=== PATIENT | male | born 1950 | race Caucasian/White ===

== ENCOUNTER → 2017-07-28 | Day surgery (SDC) | payer MEDICARE, BC ==
[2017-07-13 11:45] LABS: BASOPHILS % 0.3 % (0.0-1.0); EOSINOPHILS # (AUTO) 0.2 (0.0-0.4); EOSINOPHILS % 2.4 % (0.0-6.0); HEMATOCRIT 45.1 % (38.2-49.6); HEMOGLOBIN 15.6 g/dL (14.0-18.0); LYMPHOCYTES # (AUTO) 1.9 (1.0-3.2); LYMPHOCYTES % 30.8 % (18.0-39.1); MEAN CORPUSCULAR HEMOGLOBIN 31.7 pg (28-32); MEAN CORPUSCULAR HGB CONC 34.6 g/dL (31-35); MEAN CORPUSCULAR VOLUME 91.7 fL (81-99); MONOCYTES # (AUTO) 0.8 (0.2-0.8); MONOCYTES % 13.5 % (4.4-11.3); NEUTROPHILS # (AUTO) 3.2 (2.1-6.9); NEUTROPHILS % 52.5 % (38.7-80.0); PLATELET COUNT 150 x10e3/uL (140-360); RED BLOOD COUNT 4.92 x10e6/uL (4.3-5.7); RED CELL DISTRIBUTION WIDTH 14.1 % (11.7-14.4)
[~2017-07-28] MED LIST: ALLOPURINOL300 MG PO; ASPIR 8181 MG PO; ASPIRIN81 MG PO; CRESTOR5 MG PO; DOXAZOSIN MESYLA1 MG PO; LEVOTHYROXINE50 MCG PO; LIDOCAINE HCL 2% LOCAL INJ 5 ML SDV VIAL INJ ONE; MELATONIN3 MG PO; MIDAZOLAM HCL 2 MG/2 ML VIAL ONE; NIACIN500 M2 PO; PROPOFOL IV EMULSION 10 MG/ML 50 ML VIAL ONE; SIMVASTATIN20 MG PO; TAMSULOSIN HCL0.4 MG PO; TRIAMTERENE-HC1 EAC1 PO; TRIAMTERENE-HCTZ1 EA PO; VITAMIN D-3 PO; ZOLPIDEM TARTRA10 MG PO
--- OUTSIDE RECORDS SUMMARY | 2017-07-28 07:22 | XMS REPORT | Clinical Summary ---
Author Author [facility] Address Unknown Phone Unavailable Care Team Providers Care Admission Discharge Rn Name Role Phone PCP Unavailable Allergies Not on File Current Medications Not on file Active Problems Not on file Encounters Date Type Specialty Care Team Description 03/30/2017 Lab Lab Kimberlee Jones DO after 07/27/2016 Social History Tobacco Use Types Packs/Day Years Used Date Never Assessed Sex Assigned at Date Recorded Not on file Last Filed Vital Signs Not on file Plan of Treatment Health Maintenance Due Date Last Done Comments COLONOSCOPY 2000 ZOSTER VACCINE 2010 PNEUMOCOCCAL 09/09/2015 POLYSACCHARIDE VACCINE AGE 65 AND OVER PNEUMOCOCCAL-13 09/09/2015 INFLUENZA VACCINE 12/02/2016 Results * Surgical pathology request (03/30/2017 11:36 AM) Component Value Ref Range Surgical pathology report See link below for PDF Lab Report Result status This is Final Report to [id number] Specimen Performing Laboratory [facility] DEPARTMENT OF PATHOLOGY AND GENOMIC MEDICINE [address] [place] [id number] after 07/27/2016 Insurance Payer Benefit Subscriber ID Type Phone Address Plan / Group MEDICARE MEDICARE xxxxxxxxxx Medicare [place] A [place] B BCBS BCBS xxxxxxxxxxxx PPO CHOICE PPO/[employer] PPO
== END | disposition home or self-care (01) ==
LOC: OR 07:20
PROVIDERS: ATTEND Internal Medicine Gastroenterology
DX: Z12.11 Encounter for screening for malignant neoplasm of colon (principal); D12.0 Benign neoplasm of cecum; D12.2 Benign neoplasm of ascending colon; K57.30 Diverticulosis of large intestine without perforation or abscess without bleeding; K64.8 Other hemorrhoids; I44.0 Atrioventricular block, first degree; I69.898 Other sequelae of other cerebrovascular disease; H53.9 Unspecified visual disturbance; I13.10 Hypertensive heart and chronic kidney disease without heart failure, with stage 1 through stage 4 chronic kidney disease, or unspecified chronic kidney disease; N18.3 Chronic kidney disease, stage 3 (moderate); E78.5 Hyperlipidemia, unspecified; E03.9 Hypothyroidism, unspecified; Z01.810 Encounter for preprocedural cardiovascular examination; Z01.812 Encounter for preprocedural laboratory examination; Z79.82 Long term (current) use of aspirin; Z68.34 Body mass index [BMI] 34.0-34.9, adult; Z85.46 Personal history of malignant neoplasm of prostate; Z80.0 Family history of malignant neoplasm of digestive organs
CPT/HCPCS: 36415; 45384; 45385; 85025; 88305; 93005; J2001; J2250; 45378

== ENCOUNTER → 2018-09-30 | Outpatient (CLI) | payer MEDICARE, BC ==
[~2018-09-30] MED LIST changes: +GADOBENATE DIMEGLUMINE 1 ML IV ONE; -LIDOCAINE HCL 2% LOCAL INJ 5 ML SDV VIAL INJ ONE; -MIDAZOLAM HCL 2 MG/2 ML VIAL ONE; -PROPOFOL IV EMULSION 10 MG/ML 50 ML VIAL ONE
[2018-09-30 08:05] LABS: BLOOD UREA NITROGEN 23 mg/dL (7-26); BUN/CREATININE RATIO 23 (6-25); CREATININE, SERUM 1.02 mg/dL (0.72-1.25); EST GLOMERULAR FILTRATION RATE > 60 ML/MIN (60-)
--- NOTE | 2018-09-30 12:03 | Diagnostic Imaging Report ---
EXAMINATION: MRI of the brain and orbits HISTORY:Diplopia, 6 cranial nerve palsy, droopy right eye, double vision on the right eye COMPARISON:None available TECHNIQUE: Brain: Sagittal T2; axial DWI, FLAIR, T1-IR, gradient echo; coronal FLAIR. Post contrast axial, sagittal and coronal T1 fat sat. Orbits: Axial and coronal T1 [id number] contrast; axial and coronal T2.. High resolution coronal T2FS and STIR . Intravenous contrast: 20 mL MultiHance. BRAIN MRI FINDINGS: Brain signal intensity: A few scattered and mildly confluent periventricular white matter T2 and FLAIR hyperintense foci, most likely nonspecific chronic microvascular ischemic changes. 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 There is no mass, hemorrhage or acute or chronic infarcts. Vessels: Expected flow voids present in the major arteries and dural sinuses. Brain volume: Within normal limits for age. Ventricles: Normal size, shape, and position. Craniocervical junction: Normal. Paranasal and mastoid sinuses: Clear ORBITS MRI FINDINGS: Globes: The lenses are not visualized, likely from prior cataract surgery. Otherwise unremarkable. Optic nerves: Normal size. No abnormal enhancement. Orbital fat: Normal. Extraocular muscles: Normal. Preseptal soft tissues: Normal. Lacrimal glands: Normal. Pituitary gland: No enlargement. Cavernous sinuses: Normal. Paranasal sinuses: Normal. Superior ophthalmic veins: No enlargement. IMPRESSION: 1. Mild nonspecific white matter chronic microvascular ischemic changes. Otherwise no intracranial abnormalities. 2. No orbits abnormalities. Signed by: Dr. Elizabeth Lopez M.D. on 09/30/2018 12:00 PM
== END ==
LOC: MRI 07:08
PROVIDERS: ATTEND Ophthalmology
DX: H49.21 Sixth [abducent] nerve palsy, right eye (principal); R51 Headache; H53.2 Diplopia
CPT/HCPCS: 36415; 70543; 70553; 82565; 84520; A9577